=== PATIENT | male | born 1990 | race Caucasian/White ===

== ENCOUNTER → 2017-10-21 | Day surgery (SDC) | payer BC ==
[~2017-10-21] MED LIST: Lactated Ringers 1,000 ML IV SCH; Meperidine PF 25 MG/ML Syringe ONE; Meperidine PF 50 MG/ML Syringe ONE; Midazolam 1 MG/ML 2 ML SDV ONE
[2017-10-21] MEDS: Meperidine PF 50 MG/ML Syringe IV ONE (13:20)
[2017-10-21] MEDS: Midazolam 1 MG/ML 2 ML SDV IV ONE ×2 (13:22→13:26)
[2017-10-21 13:29] LABS: CHLORIDE,CL 103 mEq/L (98-106); SODIUM,NA 140 mEq/L (136-145)
[2017-10-21] MEDS: Meperidine PF 25 MG/ML Syringe IV ONE (13:30)
[2017-10-21 15:40] VITALS: BP 100/63
--- NOTE | 2017-10-21 20:15 | OR ---
DATE OF OPERATION: 10/21/2017 PREOPERATIVE DIAGNOSIS: HEMATOCHEZIA. POSTOPERATIVE DIAGNOSIS: HEMATOCHEZIA. SURGEON: Hubert Cline MD PROCEDURE: FULL-LENGTH COLONOSCOPY WITH RANDOM BIOPSIES X7. ANESTHESIA: Conscious sedation. COMPLICATIONS: None. SPECIMEN: Random biopsies from cecum to rectum x7. FINDINGS: 1. Full-length colonoscopy. 2. No obvious signs of colitis, polyps, masses, or otherwise. 3. Internal hemorrhoids. RECOMMENDATIONS: Medical followup with Dr. Arechiga for pathological reports and discussion on internal hemorrhoid options. INDICATIONS: Mr. Davis is a 27-year-old male who has been having what sounds like 3 or 4 years of on and off again hematochezia, when he does get it, lasts for a day or two and then goes away for months or so at a time. Dr. Arechiga sent him for colonoscopy. DESCRIPTION OF PROCEDURE: The patient was prepped and draped, placed in the left lateral decubitus position. A lubricated Olympus colonoscope was inserted and easily advanced to the cecum. Direct visualization of the ileocecal valve and appendiceal orifice was accomplished, variably intubated into the ileocecal valve and visualized the terminal ileum. No abnormalities were seen. Upon withdrawal, throughout the entire length of the colon I could find no signs of any polyps, mass, ulceration, or bleeding sites. No vascular abnormalities or obvious signs of colitis. We did do random biopsies x7 from the cecum to the rectum. I could find no bleeding sources on this gentleman. He had one small focal area in the rectosigmoid junction that may represent a small AVM and I did biopsy that and removed it in its entirety, but other than that no gross abnormalities were seen. Retroflexion of the scope in the rectum did show some very mild vascularity around the perianal area, but nothing overt. Air was then suctioned and the scope was removed without complication. EMILY/PIEDAD /[id number]
== END ==
LOC: CC.SDS 12:39
PROVIDERS: ATTEND Family Medicine
DX: K92.1 Melena (principal); K64.8 Other hemorrhoids; E78.5 Hyperlipidemia, unspecified; E55.9 Vitamin D deficiency, unspecified; Z88.1 Allergy status to other antibiotic agents
CPT/HCPCS: 36415; 80053; 80061; 82306; 82607; 82746; 83516; 84443; 85025; 86140; J2175; J2250